=== PATIENT | female | born 1990 | race Caucasian/White ===

== ENCOUNTER 2021-02-08 12:26 | Inpatient (IN) | payer MEDICAID ==
[2021-02-03 14:48] LABS: BASOPHILS # (AUTO) 0.1 X10'3 (0-0.2); BASOPHILS % (AUTO) 1.1 % (0-1); EOSINOPHILS # (AUTO) 0.3 X10'3 (0-0.9); EOSINOPHILS % (AUTO) 3.2 % (0-6); LYMPHOCYTES # (AUTO) 3.1 X10'3 (1.1-4.8); LYMPHOCYTES % (AUTO) 30.9 % (21-51); MEAN CORPUSCULAR HEMOGLOBIN 29.7 PG (27.0-31.0); MEAN CORPUSCULAR HGB CONC 34.2 g/dL (33.0-36.5); MEAN CORPUSCULAR VOLUME 86.8 FL (78-98); MEAN PLATELET VOLUME 8.5 FL (7.4-10.4); MONOCYTES # (AUTO) 0.5 X10'3 (0-0.9); MONOCYTES % (AUTO) 5.3 % (2-12); NEUTROPHILS # (AUTO) 5.9 X10'3 (1.8-7.7); NEUTROPHILS % (AUTO) 59.5 % (42-75); PRE OP HEMOGLOBIN 14.7 g/dL (12.0-16.0); PRE OP PLATELET COUNT 347 X10'3 (140-440); RED BLOOD COUNT 4.96 X10'6 (4.20-5.60); RED CELL DISTRIBUTION WIDTH 12.9 % (11.5-14.5)
[2021-02-03 14:56] LABS: ALBUMIN 3.8 G/DL (3.4-5.0); ALBUMIN/GLOBULIN RATIO 0.9 (1.1-1.5); ALKALINE PHOSPHATASE 54 IU/L (46-116); BLOOD UREA NITROGEN 11 MG/DL (7-18); BUN/CREATININE RATIO 14.7 (6.6-38.0); CALCIUM 9.6 MG/DL (8.5-10.1); CHLORIDE 105 MMOL/L (99-107); CREATININE 0.75 MG/DL (0.40-0.90); PRE OP ALT 25 U/L (30-65); PRE OP ANION GAP 13 (8-16); PRE OP AST 10 U/L (10-37); PRE OP BILIRUB, TOTAL 0.2 MG/DL (0.0-1.0); PRE OP GLUCOSE 129 MG/DL (70-104); PRE OP SODIUM 143 MMOL/L (135-145); TOTAL CARBON DIOXIDE 25.1 MMOL/L (24-32); TOTAL PROTEIN 8.2 G/DL (6.4-8.2); eGFR > 90 ML/MIN
[2021-02-03 14:57] LABS: HCG SERUM QL NEGATIVE
[2021-02-03 15:06] LABS: HEMOGLOBIN A1C 6.6 % (4.5-6.2)
[2021-02-03 16:03] LABS: CLARITY,URINE SLIGHTLY CLOUDY (Clear); COLOR,URINE YELLOW (Yellow); GLUCOSE, URINE NEGATIVE (Neg); KETONES,URINE NEGATIVE (Neg); OCCULT BLOOD,URINE TRACE-LYSED (Neg); PROTEIN,URINE NEGATIVE (Neg); UA COLLECTION TYPE CLN CATCH MIDSTREAM
[2021-02-03 16:04] LABS: LEUKOCYTE ESTERASE ,URINE NEGATIVE (Neg); NITRITES, URINE NEGATIVE (Neg); UROBILINOGEN,URINE 0.2 E.U/dL (0.2-1.0)
[2021-02-03 16:22] LABS: BACTERIA,URINE FEW /HPF (Neg); CAL OXALATE CRYSTALS 2+ /HPF (NEGATIVE); SQUAMOUS EPITHELIAL CELL,UR FEW /LPF (FEW); URIC ACID CRYSTALS FEW /HPF (NEGATIVE)
[2021-02-03 16:23] LABS: RBC,URINE 0-2 /HPF (0-2); WBC,URINE 0-4 /HPF (0-4)
[~2021-02-08] VITALS: Ht 170.2 cm; Wt 138.0 kg
[2021-02-08] VITALS (23 sets, daily range): BP systolic 125–192; BP diastolic 72–125
[~2021-02-08 12:26] MED LIST: HYDR-3686 PO; LEVO88TA2 PO; METF-900 PO; ceFOXitin 2GM-NS 100mL ADDvant 100 ML IV ONE; famotidine 20mg tablet PO ONE; ringers solution, lacted 1,000 ML IV SCH
[2021-02-08] MEDS ORDERED: iohexol 300 MG/1 ML 50ml polymer ONE (15:42)
[2021-02-08] MEDS ORDERED: BUPIVAcaine 0.5% inj/PF 30 ML ONE (15:42)
[2021-02-08] MEDS ORDERED: BUPIVAcaine/PF 2.5mg/ml (0.25%) 10ml vial ONE (16:10)
[2021-02-08] MEDS ORDERED: BUPIVACAINE liposomal/PF 13.3 MG/ML vial IM ONE (16:10)
[2021-02-08] MEDS ORDERED: fentaNYL/PF 50MCG/1 ML 2ML syringe ONE ×2 (16:14→18:10)
[2021-02-08] MEDS ORDERED: midazolam 1 mg/ML 2ml injection ONE (16:15)
[2021-02-08] MEDS ORDERED: ondansetron/PF 4mg/2ml inj ONE (16:17)
[2021-02-08] MEDS ORDERED: rocuronium 10mg/ml inj IV ONE ×2 (16:17→16:20)
[2021-02-08] MEDS ORDERED: propofol inj 20 ML IV ONE (16:17)
[2021-02-08] MEDS ORDERED: LIDOcaine 2% (20mg/ml) 5ml vial ONE (16:17)
[2021-02-08] MEDS ORDERED: neostigmine methylsulfate 1 MG/ML 10ml vial ONE (16:20)
[2021-02-08] MEDS ORDERED: glycopyrrolate 0.2mg/ml inj ONE (16:20)
[2021-02-08] MEDS ORDERED: sevoflurane 250ml liquid IH ONE (16:20)
[2021-02-08] MEDS ORDERED: dexamethasone sod phosphate 4mg/ml inj. ONE (16:44)
[2021-02-08] MEDS ORDERED: ringers solution, lacted 1,000 ML IV SCH (17:15)
[2021-02-08] MEDS ORDERED: fentaNYL/PF 50MCG/1 ML 2ML syringe IV PRN (17:15)
[2021-02-08] MEDS ORDERED: hydrALAZINE 20mg/ml inj. IV PRN (17:15)
[2021-02-08] MEDS ORDERED: labetalol 20mg/4ml (5mg/ml) syringe IV PRN (17:15)
[2021-02-08] MEDS ORDERED: morphine 2 MG/ML inj. syringe IV PRN (17:15)
[2021-02-08] MEDS ORDERED: ondansetron/PF 4mg/2ml inj IV PRN (17:15)
[2021-02-08] MEDS ORDERED: labetalol 20mg/4ml (5mg/ml) syringe IV ONE ×2 (17:23→18:40)
[2021-02-08] MEDS ORDERED: sugammadex 200mg/2ml injection IV ONE (18:28)
--- NOTE | 2021-02-08 18:59 | NUR ---
Received from OR via , accompanied by Anesthesiologist DR DELGADO and report given by Anesthesiolgist. PT PRESENTS WITH 20G LEFT HAND, ABD DRESSING DRY AND INTACT, VSS. Addendum: 02/08/21 at 1908 by Pratima Cook RN, RN Amended: Links added.
[2021-02-08] MEDS: morphine 4 MG/ML inj SYRINge IV PRN ×3 (19:01→19:21)
[2021-02-08] MEDS: fentaNYL/PF 50MCG/1 ML 2ML syringe IV PRN ×4 (19:46→20:48)
[2021-02-08] MEDS ORDERED: METF-950 PO (20:44)
[2021-02-08] MEDS ORDERED: BUPR300T86 PO (20:47)
[2021-02-08] MEDS ORDERED: TRAZ-251 PO (20:47)
--- NOTE | 2021-02-08 20:55 | NUR ---
PATIENT TAKEN TO ROOM WITH ALL BELONGINGS AND HOOKED UP TO MONITORS IN ROOM AND GIVEN CALL LIGHT, REPORT GIVEN TO ELMA PETTY WHO HAS TAKEN OVER PATIENT CARE. Addendum: 02/08/21 at 2054 by Pratima Cook RN, RN Amended: Links added.
[2021-02-08] MEDS: traZODone 50mg tablet PO SCH (22:00)
[2021-02-08] MEDS: HYDROmorphone/PF 0.2 MG/ML SYRINGE IV PRN (22:07)
[2021-02-08] MEDS: HYDROcodone/acetaminophen 10/325mg tab PO PRN (23:19)
[2021-02-08] MEDS: ondansetron/PF 4mg/2ml inj IV PRN (23:19)
[2021-02-08] MEDS: hydrOXYzine 25 MG tablet PO PRN (23:56)
[2021-02-09] MEDS: piperacillin/tazo 3.375gm/50ml 50 ML IV SCH ×3 (00:07→17:42)
--- NOTE | 2021-02-09 00:59 | NUR ---
OR recovery report received from Pratima PETTY, had the opportunity to ask questions and review patient's chart
[2021-02-09] MEDS: ketorolac trometh. 30mg/ml inj. IV PRN ×3 (02:04→19:12)
[2021-02-09] MEDS: HYDROmorphone/PF 0.2 MG/ML SYRINGE IV PRN ×2 (02:36→20:43)
[2021-02-09 04:11] VITALS: BP 134/78
[2021-02-09] MEDS: HYDROcodone/acetaminophen 10/325mg tab PO PRN ×3 (04:34→16:01)
[2021-02-09] MEDS: normal saline 1000ml 1,000 ML IV SCH ×3 (05:35→15:35)
[2021-02-09 07:00] VITALS: BP 104/57
[2021-02-09 08:00] VITALS: BP 104/57
[2021-02-09] MEDS: levoTHYROXINE 88mcg tablet PO SCH (08:12)
[2021-02-09] MEDS: buPROPion SR 150mg tablet PO SCH ×2 (08:12→20:31)
[2021-02-09] MEDS: metFORMIN 500mg tablet PO SCH ×2 (08:12→20:31)
[2021-02-09 11:00] VITALS: BP 113/72
--- NOTE | 2021-02-09 11:13 | NUR ---
Dr Rg lemus MD stated the pt will be here through the weekend for IV abx, and likely on PO abx at time of discharge d/t infection. Also, pharmacy is to dose daily Lovenox dose, and WOCN is to assess pt for possible wound vac.
--- NOTE | 2021-02-09 11:38 | NUR ---
Pharmacist stated that prophylactic Lovenox for the pt's wt is 40mg SQ QD. Order placed in [facility].
--- NOTE | 2021-02-09 11:40 | NUR ---
Chely, WOCN RN, is aware of orders and said [facility] will see pt tomorrow.
[2021-02-09] MEDS ORDERED: insulin Lispro (HumaLOG) vial - multi-dose SQ SCH (17:30)
[2021-02-09] MEDS ORDERED: dextrose 50%-water 50ml dispensing syringe IV PRN ×2 (17:30)
[2021-02-09] MEDS ORDERED: MESSAGE TO PHARMACY PO ONE (17:30)
[2021-02-09] MEDS ORDERED: dextrose ORAL solution 15 GM/59 ML bottle PO PRN ×2 (17:30)
[2021-02-09] MEDS ORDERED: glucagon, human recombinant 1mg kit SUBCUT PRN (17:30)
[2021-02-09 18:00] VITALS: BP 146/73
[2021-02-09] MEDS: insulin glargine (Lantus) pen - multi-dose SQ SCH (18:40)
--- NOTE | 2021-02-09 18:44 | NUR ---
Problems reprioritized. Patient report given, questions answered & plan of care reviewed with EBONY RN.
[2021-02-09] MEDS ORDERED: enoxaparin 100mg/ml syringe SUBCUT SCH (20:00)
[2021-02-09] MEDS: hydrOXYzine 25 MG tablet PO PRN (20:35)
[2021-02-09] MEDS: traZODone 50mg tablet PO SCH (20:37)
[2021-02-10] MEDS: piperacillin/tazo 3.375gm/50ml 50 ML IV SCH ×4 (00:01→23:59)
[2021-02-10 00:42] VITALS: BP 93/63
[2021-02-10] MEDS: enoxaparin 40mg/0.4ml syringe SUBCUT SCH ×2 (01:11→20:00)
[2021-02-10] MEDS: normal saline 1000ml 1,000 ML IV SCH ×3 (01:35→15:55)
[2021-02-10] MEDS: ketorolac trometh. 30mg/ml inj. IV PRN ×2 (02:58→21:10)
[2021-02-10] MEDS: HYDROmorphone/PF 0.2 MG/ML SYRINGE IV PRN ×4 (04:24→22:43)
--- NOTE | 2021-02-10 05:42 | NUR ---
Patient in room [facility] 346. I have received report from Zainab Cason RN and had the opportunity to ask questions and assume patient care.
[2021-02-10] MEDS: HYDROcodone/acetaminophen 10/325mg tab PO PRN ×2 (07:48→13:57)
[2021-02-10] MEDS: buPROPion SR 150mg tablet PO SCH ×2 (07:52→20:00)
[2021-02-10] MEDS: levoTHYROXINE 88mcg tablet PO SCH (07:52)
[2021-02-10] MEDS: metFORMIN 500mg tablet PO SCH ×2 (07:52→20:00)
[2021-02-10 07:53] VITALS: BP 118/72
[2021-02-10 10:00] VITALS: BP 126/73
--- NOTE | 2021-02-10 10:30 | NUR ---
Patient had a wound vac placement with 125mmHg continuous low suction, pain Meds given Prio to placement.
[2021-02-10 12:00] VITALS: BP 126/73
--- NOTE | 2021-02-10 13:45 | NUR ---
WOUND VAC EDUCATION PROVIDED BY WOUND CARE 1. Patient instructed to call the Wound Center or their Home Health Agency immediately if: * They notice a change in the color or amount of the fluid in the canister. * Their wound looks more red than usual or has a foul smell. * The skin around their wound looks reddened or irritated. * The dressing feels loose or appears to be loose. * They experience any increase or changes in their pain. * The alarm will not turn off. 2. Patient instructed that they should not be disconnected from suction for more than 2 hours at a time. * If they are not able to get the suction back on, they need to remove the dressing and take all of the foam out of the wound. * Then moisten sterile gauze with normal saline and place on/in the wound. * Change the dressing once a day until arrangements have been made to replace the wound vac dressing. 3. Patient instructed to turn the wound vac machine OFF and call 911 or go to the ED immediately if their canister fills rapidly with blood. 4. If any of these occur while in the hospital tell a nurse immediately. Addendum: 02/10/21 at 1346 by Luis Enrique Tirado RN Amended: Links added.
[2021-02-10] MEDS: ondansetron/PF 4mg/2ml inj IV PRN (13:57)
[2021-02-10] MEDS: phenazopyridine 100mg tablet PO SCH ×2 (15:50→18:00)
--- NOTE | 2021-02-10 17:08 | NUR ---
Patient refused 1700 Accu-check. Addendum: 02/10/21 at 1709 by Balbina Blackwell RN Amended: Links added.
--- NOTE | 2021-02-10 17:30 | NUR ---
Patient refuse Accu check, stated that it hurt her finger,
[2021-02-10 18:00] VITALS: BP 137/82
[2021-02-10] MEDS: traZODone 50mg tablet PO SCH (21:00)
[2021-02-10] MEDS: insulin glargine (Lantus) pen - multi-dose SQ SCH (21:00)
[2021-02-10] MEDS: hydrOXYzine 25 MG tablet PO PRN (21:13)
[2021-02-11] VITALS: BP 134/77
[2021-02-11] MEDS: HYDROcodone/acetaminophen 10/325mg tab PO PRN ×4 (00:19→19:56)
[2021-02-11] MEDS: ketorolac trometh. 30mg/ml inj. IV PRN (03:35)
[2021-02-11 08:00] VITALS: BP 143/89
[2021-02-11] MEDS: piperacillin/tazo 3.375gm/50ml 50 ML IV SCH ×2 (08:49→16:50)
[2021-02-11] MEDS: phenazopyridine 100mg tablet PO SCH ×3 (08:49→19:59)
[2021-02-11] MEDS: metFORMIN 500mg tablet PO SCH ×2 (08:50→19:56)
[2021-02-11] MEDS: levoTHYROXINE 88mcg tablet PO SCH (08:50)
[2021-02-11] MEDS: buPROPion SR 150mg tablet PO SCH ×2 (08:50→19:56)
[2021-02-11] MEDS: normal saline 1000ml 1,000 ML IV SCH ×2 (08:51→20:03)
[2021-02-11 12:00] VITALS: BP 125/85
[2021-02-11] MEDS ORDERED: benzocaine/menthol oral lozeng 1 EACH BOX MM PRN (15:05)
--- NOTE | 2021-02-11 15:07 | NUR ---
Dr Duff rounded on patient. Following orders: DC wound vac in am, dressing to be moist daily. Have case management set up home health, and wound clinic appt. Ramiro NERI and the hospitalist to change patient to PO antibiotics for discharge in am. MOM BID scheduled and Throat brannon. prn Primary RN aware.
--- NOTE | 2021-02-11 15:12 | NUR ---
Helene with case management aware of home health need and wound clinic need.
--- NOTE | 2021-02-11 19:03 | NUR ---
Patient refused Accu check per protocol, stated that it hurt her finger
--- NOTE | 2021-02-11 19:04 | NUR ---
Problems reprioritized. Patient report given, questions answered & plan of care reviewed with Yoselin PETTY.
[2021-02-11] MEDS: traZODone 50mg tablet PO SCH (19:56)
[2021-02-11] MEDS: magnesium hydroxide 30ml (MOM) UD suspension PO SCH (19:57)
[2021-02-11 20:00] VITALS: BP 140/86
[2021-02-11] MEDS: enoxaparin 40mg/0.4ml syringe SUBCUT SCH (20:00)
[2021-02-11] MEDS: insulin glargine (Lantus) pen - multi-dose SQ SCH (21:00)
[2021-02-12] VITALS: BP 129/75
[2021-02-12] MEDS: piperacillin/tazo 3.375gm/50ml 50 ML IV SCH ×2 (00:25→07:22)
[2021-02-12] MEDS: HYDROcodone/acetaminophen 10/325mg tab PO PRN ×2 (02:57→12:25)
[2021-02-12] MEDS: ondansetron/PF 4mg/2ml inj IV PRN (03:48)
[2021-02-12] MEDS: normal saline 1000ml 1,000 ML IV SCH (05:13)
--- NOTE | 2021-02-12 06:58 | NUR ---
Problems reprioritized. Patient report given, questions answered & plan of care reviewed with RUSSELL PETTY.
[2021-02-12] MEDS: buPROPion SR 150mg tablet PO SCH (07:21)
[2021-02-12] MEDS: phenazopyridine 100mg tablet PO SCH ×2 (07:21→12:24)
[2021-02-12] MEDS: metFORMIN 500mg tablet PO SCH (07:21)
[2021-02-12] MEDS: levoTHYROXINE 88mcg tablet PO SCH (07:21)
[2021-02-12] MEDS: magnesium hydroxide 30ml (MOM) UD suspension PO SCH (07:28)
[2021-02-12 08:00] VITALS: BP 143/79
[2021-02-12 11:00] VITALS: BP 143/79
[2021-02-12] MEDS ORDERED: AMOX-580 PO (14:38)
--- NOTE | 2021-02-12 17:10 | NUR ---
Pt Dc to home. Pt is A & O x4, and in no apparent distress. Pt and her boyfriend were educated on wound care, given supplies and answered all questions. Pt is aware of the importance of following up with wound care and her PCP. Pt took home several supplies to change set to dry daily. Pt also given antibiotics. pt uber home. She was wheeled to the front where uber milk wagon driver picked her up.
== END 2021-02-12 17:15 | disposition home health service (06) | DRG 231 ==
LOC: PAS IN 12:26 → UNDOADMIN 12:26 → PAS IN 20:04 → SUR 3N 21:00 → PAS IN 21:00 → SUR 3N 02-11 02:27
PROVIDERS: ADMIT Surgery; ATTEND Surgery
PROC: BT141ZZ Fluoroscopy of Kidneys, Ureters and Bladder using Low Osmolar Contrast (ICD-10-PCS; 2021-02-08)
PROC: 3E0T3BZ Introduction of Anesthetic Agent into Peripheral Nerves and Plexi, Percutaneous Approach (ICD-10-PCS; 2021-02-08)
PROC: 3E0T33Z Introduction of Anti-inflammatory into Peripheral Nerves and Plexi, Percutaneous Approach (ICD-10-PCS; 2021-02-08)
PROC: 0DTN4ZZ Resection of Sigmoid Colon, Percutaneous Endoscopic Approach (ICD-10-PCS; principal; 2021-02-08 16:20)
PROC: 0T788DZ Dilation of Bilateral Ureters with Intraluminal Device, Via Natural or Artificial Opening Endoscopic (ICD-10-PCS; 2021-02-08 16:20)
DX: K57.80 Diverticulitis of intestine, part unspecified, with perforation and abscess without bleeding (principal); E03.9 Hypothyroidism, unspecified; F32.A Depression, unspecified; F41.9 Anxiety disorder, unspecified; E66.01 Morbid (severe) obesity due to excess calories; K66.0 Peritoneal adhesions (postprocedural) (postinfection); E11.9 Type 2 diabetes mellitus without complications; Z68.42 Body mass index [BMI] 45.0-49.9, adult; Z88.2 Allergy status to sulfonamides; Z88.8 Allergy status to other drugs, medicaments and biological substances
CPT/HCPCS: 36415; 76000; 80053; 81001; 82948; 83036; 84443; 84703; 85025; 86885; 86900; 86901; 87081; 93005; A4215; A4618; A6253; A6446; A6449; A7000; C1758; C1769; C9290; C9399; G0378; J0694; J1100; J1170; J1815; J1885; J2001; J2250; J2270; J2405; J2543; J2704; J2710; J3010; J3490; J7030; J7120; Q0177; Q9967; U0003; U0005